=== PATIENT | female | born 1995 | race Two or more races ===

== ENCOUNTER 2018-02-17 02:23 | Emergency (ER) | payer SELFPAY ==
[~2018-02-17] VITALS: Ht 160 cm; Wt 90.7 kg
[2018-02-17 03:20] LABS: Urine Amorphous Crystal FEW /hpf (None Seen); Urine Bacteria FEW /hpf (None Seen); Urine Blood TRACE /uL (Negative); Urine Mucus FEW (None Seen); Urine Specific Gravity 1.034 (1.001-1.035); Urine WBC 2 /hpf (0 - 5)
[2018-02-17 06:44] VITALS: BP 134/78
[2018-02-17] MEDS ORDERED: DEXAMETHASONE SOD PHOS 10MG/1ML VIAL INJ IM ONE (06:45)
[2018-02-17] MEDS ORDERED: KETOROLAC TROMETH 60MG/2ML VIAL IM ONE (06:45)
== END 2018-02-17 07:00 | disposition home or self-care (01) ==
LOC: ER 02:23 → EDBD 02:23 → ER 07:00
DX: S20.219A Contusion of unspecified front wall of thorax, initial encounter (principal); V43.52XA Car driver injured in collision with other type car in traffic accident, initial encounter; Y93.89 Activity, other specified; Y99.8 Other external cause status; Y92.410 Unspecified street and highway as the place of occurrence of the external cause
CPT/HCPCS: 71046; 81001; 81025; 96372; 99284; J1100; J1885